=== PATIENT | female | born 1965 | race Caucasian/White ===

== ENCOUNTER 2022-10-27 06:37 | Outpatient (CLI) | payer OTHER, SELFPAY ==
--- NOTE | ~2022-10-27 | MR_ITS ---
MRI of the right knee Clinical history: Traumatic hemarthrosis Technique: Coronal proton density and proton density-weighted images, sagittal proton-density and T2 fat-sat images, and axial proton-density fat-saturated images were acquired. Findings: There is complete rupture of the proximal ACL. Posterior cruciate ligament is intact. There is thickening and hyperintense signal with high-grade partial tearing of the proximal MCL. The fibul ar collateral ligament and lateral collateral ligament complex are intact. Popliteus tendon is intact . Medial and lateral menisci are intact, without evidence of tear. There are bone contusions at the central aspect of the lateral femoral condyle and the posterolateral tibial plateau region, consistent with pivot shift injury and transchondral impaction injuries. Ther e is associated subchondral nondisplaced fracture line at the lateral femoral condyle consistent with nondisplaced osteochondral fragment without evidence of displacement or instability. There is patchy high-grade chondromalacia along the medial patellar facet. Extensor mechanism is intact. Moderate to large joint effusion is present. No Clement's cyst. There is mild subcutaneous soft tissue edema about the knee. Impression: Complete tear of the proximal ACL. Moderate to high-grade partial tear of the proximal MCL. Nondisplaced osteochondral fragment of the lateral femoral condyle without evidence for instability. Associated transchondral impaction injury at the lateral femoral condyle and posterolateral tibial pl ateau related to recent pivot shift injury. Moderate to large joint effusion. 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 Reviewed, dictated and finalized at [facility]. Impression: Complete tear of the proximal ACL. Moderate to high-grade partial tear of the proximal MCL. Nondisplaced osteochondral fragment of the lateral femoral condyle without evid ence for instability. Associated transchondral impaction injury at the lateral femoral condyle and posterolateral tibial plateau related to recent pivot shift injury. Moderate to large joint effusion. 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
== END 2022-10-27 06:38 | disposition home or self-care (01) ==
PROVIDERS: PCP Family Medicine; Visit Provider Orthopaedic Surgery
DX: S83.511A Sprain of anterior cruciate ligament of right knee, initial encounter (principal); S83.411A Sprain of medial collateral ligament of right knee, initial encounter; X58.XXXA Exposure to other specified factors, initial encounter; M25.461 Effusion, right knee
CPT/HCPCS: 73721